=== PATIENT | female | born 1985 | race Caucasian/White ===

== ENCOUNTER 2017-06-16 18:47 | Emergency (ER) | payer OTHER ==
[~2017-06-16] VITALS: Ht 165.1 cm; Wt 86.4 kg
[2017-06-16] MEDS ORDERED: ALBU8.5H8 IH (19:46)
[2017-06-16 19:51] VITALS: BP 123/96
== END 2017-06-16 19:53 | disposition home or self-care (01) ==
LOC: ER 18:47
DX: J20.9 Acute bronchitis, unspecified (principal); Z79.899 Other long term (current) drug therapy
CPT/HCPCS: 71045; 99283